=== PATIENT | female | born 1990 | race Hispanic/Latino ===

== ENCOUNTER → 2018-04-17 | Day surgery (SDC) | payer OTHER ==
[~2018-04-17] MED LIST: ACETAMINOPHEN 1000 MG/100 ML IV ONE; BUPIVACAINE HCL 0.5% INJ 30 ML VIAL INJ ONE; CEFAZOLIN SOD 2 GM/D5W 50ML 50 ML IV ONE; DEXAMETHASONE SOD PHOS INJ 4 MG/ML VIAL ONE; EFFEXOR XR150 MG PO; FENTANYL CITRATE/PF 100MCG/2 ML INJ ONE; GLYCOPYRROLATE INJ 1MG/ 5 ML SYR ONE; IBUPROFEN400 MG PO; KETOROLAC TROMETHAMINE 30 MG/ML VIAL ONE; LIDOCAINE HCL 2% LOCAL INJ 5 ML SDV VIAL INJ ONE; METOCLOPRAMIDE HCL 10 MG/2ML VIAL ONE; MIDAZOLAM HCL 2 MG/2 ML VIAL ONE; MORPHINE SULFATE INJ 10 MG/ML ONE; NEOSTIGMINE 1 MG/ML 10ML VIAL ONE; ONDANSETRON HCL INJ 2 MG/ML VIAL ONE; PROPOFOL IV EMULSION 10 MG/ML 20 ML VIAL ONE; RANITIDINE HCL150 MG PO; SEVOFLURANE INHAL SOLN 250 ML PEN BTL ONE; TYLENOL WITH C1 EACH PO; VENLAFAXINE HCL75 MG PO
--- OUTSIDE RECORDS SUMMARY | 2018-04-17 05:35 | XMS REPORT | Continuity of Care Document ---
Author Author [facility] Interface Address Unknown Phone Unavailable Problems Problem Status Onset Date Classification Date Reported Comments Source Acute sinusitis 07/06/2017 Diagnosis 07/06/2017 [facility] Amenorrhea 07/06/2017 Diagnosis 07/06/2017 [facility] Obese 07/06/2017 Diagnosis 07/06/2017 [facility] Influenza 06/12/2017 Diagnosis 07/06/2017 [facility] Body mass index 40+ - severely obese 06/12/2017 Diagnosis 07/06/2017 [facility] Itching of eye 03/06/2017 Diagnosis 03/06/2017 [facility] Acute upper respiratory infection 03/06/2017 Diagnosis 03/06/2017 [facility] Elevated blood pressure 03/09/2016 Diagnosis 03/09/2016 [facility] Nasopharyngitis Problem 07/06/2017 [facility] Elevated Blood Pressure Problem 07/06/2017 [facility] Acute Sinusitis Problem 07/06/2017 [facility] Medications Medication Details Route Status Patient Instructions Ordering Provider Order Date Source Fluticasone propionate 0.05 MG/ACTUAT Metered Dose Nasal [place] fluticasone 50 mcg/actuation nasal spray,suspension INSTILL 2 SPRAYS IN EACH NOSTRIL EVERY DAY FOR 7 DAYS Active [facility] Mononessa (28) 0.25 mg-35 mcg tablet Mononessa (28) 0.25 mg-35 mcg tablet Active [facility] Brompheniramine Maleate 0.4 MG/ML / Dextromethorphan Hydrobromide 2 MG/ML / Pseudoephedrine Hydrochloride 6 MG/ML Oral Solution hzmdwqvtlqdqpao-ffqahvxchabqess-XL 2 mg-30 mg-10 mg/5 mL syrup Take 10 mL every 4 hours by oral route as needed for 5 days. Active [facility] Acetaminophen 325 MG / butalbital 50 MG / Caffeine 40 MG Oral Tablet awuqckrqhy-ektnaiuxsjlmy-hwykfdmo 50 mg-325 mg-40 mg tablet Active [facility] Ibuprofen 800 MG Oral Tablet ibuprofen 800 mg tablet Active [facility] meclizine meclizine Active [facility] Mupirocin 0.02 MG/MG Topical Ointment mupirocin 2 % topical ointment Active [facility] Omeprazole 40 MG Delayed Release Oral Capsule omeprazole 40 mg capsule,delayed release TK 1 C PO QD Active [facility] Oseltamivir 75 MG Oral Capsule [Tamiflu] Tamiflu 75 mg capsule Take 1 capsule twice a day by oral route for 5 days. Active [facility] Brompheniramine Maleate 0.4 MG/ML / Dextromethorphan Hydrobromide 2 MG/ML / Pseudoephedrine Hydrochloride 6 MG/ML Oral Solution [Bromfed DM] Bromfed DM 2 mg-30 mg-10 mg/5 mL syrup Take 10 mL every 4 hours by oral route as needed for 5 days. Active [facility] Amoxicillin 875 MG Oral Tablet amoxicillin 875 mg tablet Take 1 tablet every 12 hours by oral route for 10 days. Active [facility] benzonatate 200 MG Oral Capsule benzonatate 200 mg capsule Take 1 capsule 3 times a day by oral route for 5 days. Active [facility] 12 HR Bupropion Hydrochloride 150 MG Extended Release Oral Tablet bupropion HCl SR 150 mg tablet,12 hr sustained-release Active [facility] Sumatriptan 25 MG Oral Tablet sumatriptan 25 mg tablet Active [facility] Allergies, Adverse Reactions, Alerts Substance Category Reaction Severity Reaction type Status Date Reported Comments Source Immunizations Immunization Date Given Site Status Last Updated Comments Source influenza, injectable, quadrivalent 06/20/2017 completed [facility] Results Order Name Results Value Reference Range Date Interpretation Comments Source Influenza A negative 07/06/2017 [facility] Influenza B negative 07/06/2017 [facility] RESULT negative 07/06/2017 [facility] SWAB LOCATION Left and Right tonsillar pillars 07/06/2017 [facility] Influenza A negative 06/12/2017 [facility] Influenza B positive 06/12/2017 [facility] Influenza A negative 06/12/2017 [facility] Influenza B positive 06/12/2017 [facility] RESULT negative 06/12/2017 [facility] SWAB LOCATION Left and Right tonsillar pillars 06/12/2017 [facility] Adenovirus Ag [Presence] in Unspecified specimen by Immunoassay RESULT negative 03/06/2017 [facility] Adenovirus Ag [Presence] in Unspecified specimen by Immunoassay SWAB LOCATION Left Conjunctiva 03/06/2017 [facility] Influenza A negative 03/06/2017 [facility] Influenza B negative 03/06/2017 [facility] Vital Signs Vital Sign Value Date Comments Source Diastolic (mm Hg) 80 07/06/2017 [facility] Height 68 07/06/2017 [facility] Systolic (mm Hg) 120 07/06/2017 [facility] Weight 345 07/06/2017 [facility] Diastolic (mm Hg) 76 06/12/2017 [facility] Height 68 06/12/2017 [facility] Systolic (mm Hg) 128 06/12/2017 [facility] Weight 350 06/12/2017 [facility] Diastolic (mm Hg) 60 03/06/2017 [facility] Height 68 03/06/2017 [facility] Systolic (mm Hg) 128 03/06/2017 [facility] Weight 340 03/06/2017 [facility] Diastolic (mm Hg) 92 03/09/2016 [facility] Height 68 03/09/2016 [facility] Systolic (mm Hg) 142 03/09/2016 [facility] Weight 340 03/09/2016 [facility] Encounters Location Location Details Encounter Type Encounter Number Reason For Visit Attending Provider ADM Date DC Date Status Source [place] - [id number] Zulema Lopez, MULTIFOCAL BUTTON GENERATOR: [address] [place] [address], Ph. [id number] Zulema Lopez 03/09/2016 [facility] [place] - [id number] Radha Mota, [employer] FOUNDER AND CHIEF STRATEGY OFFICER: [address] [place] [address], Ph. [id number] Radha Mota 03/06/2017 [facility] [place] [id number] NURYS MonterrosoC: [address] [place] [address], Ph. [phone] [id number] Jayla Linda 06/12/2017 [facility] [place] - [id number] Jayla Linda PA-C: [address] [place] [address], Ph. [id number] Jayla Linda 06/12/2017 [facility] [place] - [id number] Amanda Cheung PA-C: [address] [place] [address], Ph. [id number] Amanda Cheung 07/06/2017 [facility] Procedures Procedure Code Date Perfomer Comments Source
--- OUTSIDE RECORDS SUMMARY | 2018-04-17 05:35 | XMS REPORT | Encounter Summary ---
Author Organization Unknown Address [address] [place] [address] Phone [phone] Reason for Visit Medical Complaint Instructions 1. Acute sinusitis amoxicillin 875 mg tablet fluticasone 50 mcg/actuation nasal spray,suspension benzonatate 200 mg capsule rapid flu (A+B) 2. Amenorrhea 3. Obese Discussion Note Follow up with PCP if symptoms continue, ER if symptoms worsen Patient educational handouts: No information available. Plan of Care Reminders Provider Appointments None recorded. Lab Rapid Flu (A+B) 07/06/2017 [facility] Referral None recorded. Procedures None recorded. Surgeries None recorded. Imaging None recorded. Medications Name Start Date amoxicillin 875 mg tablet Take 1 tablet every 12 hours by oral route for 10 days. benzonatate 200 mg capsule Take 1 capsule 3 times a day by oral route for 5 days. bupropion HCl SR 150 mg tablet,12 hr sustained-release fluticasone 50 mcg/actuation nasal spray,suspension INSTILL 2 SPRAYS IN EACH NOSTRIL EVERY DAY FOR 7 DAYS omeprazole 40 mg capsule,delayed release TK 1 C PO QD sumatriptan 25 mg tablet Medications Administered None recorded. Vitals Height Weight BMI Blood Pressure 5 ft 8 in 345 lbs 52.5 kg/m2 120/80 mm[Hg] Lab Results Date Name Specimen Result Interpretation Description Value Range Status Address 06/12/2017 Rapid Flu (A+B) Influenza a negative [facility]: [address] [place] [address] Influenza B positive [facility]: [address] [place] [address] Rapid Flu (A+B) Influenza a negative [facility]: [address] [place] [address] Influenza B negative [facility]: [address] [place] [address] Rapid Strep Group a, Throat Result negative [facility]: [address] [place] [address] Swab Location Left and Right tonsillar pillars [facility]: [address] [place] [address] Allergies Code Code System Name Reaction Severity Status Onset NKDA Problems Name Status Onset Date Source Nasopharyngitis Active Encounter Acute Sinusitis Active Encounter Elevated Blood Pressure Active Encounter Procedures None recorded. Vaccine List Vaccine Type influenza, injectable, quadrivalent 06/20/2017 Social History Smoking Status Never Smoker Past Encounters 07/06/2017 Acute Sinusitis; Amenorrhea; Obese Amanda Cheung PA-C: [address] [place] [address], Ph. 06/12/2017 Influenza; Body Mass Index 40+ - Severely Obese Jayla Linda PA-C: [address] [place] [address], Ph. History of Present Illness Sreqm-Qttlitlvxx-Vmvofiz Reported By: Patient HPI: Location: head/sinuses. Quality: productive cough, colored phlegm, nasal/sinus congestion. Duration: 2days. Severity: moderate. Onset/Timing: sudden. Context: no sick contacts, no foreign travel, non-smoker, allergies. Modifying factors: OTC medication. Associated Symptoms: no sputum production, no shortness of breath, no wheezing, no change in number of pillows needed to sleep at night, no sweats, no significant weight gain, no significant weight loss, no sore throat, no vomiting, no diarrhea, no rash, no nausea, no fever, no muscle aches, no headache, morning cough Review of Systems:ROS as noted in the HPI Review of Systems Basic Reported By: Patient Physical Exam Adult Basic Reported By: Patient Constitutional: General Appearance: healthy-appearing, well-nourished, well-developed. Level of Distress: NAD. Ambulation: ambulating normally Psychiatric: Mental Status: active and alert. Orientation: to time, to place, to person Eyes: Lids and Conjunctivae: non-injected, no discharge, no pallor. EOM: EOMI. Lens: clear. Sclerae: non-icteric. Vision: acuity grossly intact Fhs-Znrr-Qqgfg-Throat: Ears: no lesions on external ear, no outer ear tenderness, EACs clear, TMs clear, middle ear fluid. Hearing: no hearing loss. Nose: no lesions on external nose, nares patent, no septal deviation, nasal passages clear, sinus tenderness, nasal discharge--purulent, post nasal drip. Lips, Teeth, and Gums: no mouth or lip ulcers, no bleeding gums, normal dentition. Oropharynx: moist mucous membranes, no erythema, no exudates, tonsils not enlarged Neck: Neck: supple, trachea midline, no masses, FROM. Lymph Nodes: no cervical LAD. Thyroid: no enlargement, non-tender, no nodules Lungs: Respiratory effort: no dyspnea, no tachypnea, no use of accessory muscles, no intercostal retractions. Auscultation: breath sounds normal Cardiovascular: Heart Auscultation: RRR, no murmurs Musculoskeletal:: Joints, Bones, and Muscles: normal movement of all extremities Neurologic: Gait and Station: normal gait, normal station Back: Thoracolumbar Appearance: normal curvature
--- OUTSIDE RECORDS SUMMARY | 2018-04-17 05:35 | XMS REPORT | Encounter Summary ---
Author Organization Unknown Address [address] [place] [address] Phone [phone] Reason for Visit Medical Complaint Instructions 1. Influenza Tamiflu 75 mg capsule rapid flu (A+B) rapid strep group A, throat 2. Body mass index 40+ - severely obese Discussion Note: None recorded. Patient educational handouts: No information available. Plan of Care Patient Instructions Try dayquil/nyquil OTC. Please seek care (PCP, Urgent Care, ER) or return to [facility] if symptoms get worse or do not resolve in 1 week. Reminders Provider Appointments None recorded. Lab Rapid Flu (A+B) 06/12/2017 [facility] Rapid Strep Group a, Throat 06/12/2017 [facility] Referral None recorded. Procedures None recorded. Surgeries None recorded. Imaging None recorded. Medications Name Start Date lecrfnwfwtxsyri-mtnkbewqelpchwa-UG 2 mg-30 mg-10 mg/5 mL syrup Take 10 mL every 4 hours by oral route as needed for 5 days. wrttnjihuv-ohotwjpyryyiy-lvketasg 50 mg-325 mg-40 mg tablet ibuprofen 800 mg tablet meclizine mupirocin 2 % topical ointment omeprazole 40 mg capsule,delayed release TK 1 C PO QD Tamiflu 75 mg capsule Take 1 capsule twice a day by oral route for 5 days. Medications Administered None recorded. Vitals Height Weight BMI Blood Pressure 5 ft 8 in 350 lbs 53.2 kg/m2 128/76 mm[Hg] Lab Results Date Name Specimen Result Interpretation Description Value Range Status Address 06/12/2017 Rapid Flu (A+B) Influenza a negative [facility]: [address] [place] [address] Influenza B positive [facility]: [address] [place] [address] Rapid Strep Group a, Throat Result negative [facility]: [address] [place] [address] Swab Location Left and Right tonsillar pillars [facility]: [address] [place] [address] Allergies Code Code System Name Reaction Severity Status Onset NKDA Problems Name Status Onset Date Source Nasopharyngitis Active Encounter Acute Sinusitis Active Encounter Elevated Blood Pressure Active Encounter Procedures None recorded. Vaccine List None recorded. Social History Smoking Status Never Smoker Past Encounters 06/12/2017 Influenza; Body Mass Index 40+ - Severely Obese Jayla Linda PA-C: [address] [place] [address], Ph. History of Present Illness Xqkwn-Gyxpwgmqgq-Mpfukhx Reported By: Patient HPI: Location: head/sinuses, throat, chest. Quality: sore throat, nasal/sinus congestion, hacking cough, dry cough. Duration: 2days. Context: no sick contacts, no foreign travel, non-smoker. Associated Symptoms: no sputum production, no shortness of breath, no wheezing, no change in number of pillows needed to sleep at night, no sweats, no significant weight gain, no significant weight loss, no morning cough, no vomiting, no diarrhea, no rash, no nausea, sore throat, fever Review of Systems Basic Reported By: Patient Constitutional: Constitutional: fever Eyes: Eyes: no eye complaints Pnqq-Ovto-Oyxks-Throat: Ears: no ear complaints. Nose: nose/sinus problems. Mouth/Throat: no bleeding gums, no mouth complaints, no teeth problems, sore throat Cardiovascular: Cardiovascular: no chest pain, no shortness of breath, no known heart murmur Respiratory: Respiratory: no wheezing, no shortness of breath, cough Gastrointestinal: Gastrointestinal: no abdominal pain, no vomiting / diarrhea Skin: Skin: no rashes Physical Exam Adult Basic, Adult Female Complete, Adult Male Complete Reported By: Patient Constitutional: General Appearance: healthy-appearing, well-nourished, well-developed. Level of Distress: NAD. Ambulation: ambulating normally Psychiatric: Mental Status: active and alert. Orientation: to time, to place, to person Eyes: Lids and Conjunctivae: non-injected, no discharge, no pallor Opq-Rcmj-Jqwse-Throat: Ears: no lesions on external ear, no outer ear tenderness, EACs clear, TMs clear, TM mobility normal. Hearing: no hearing loss. Nose: no lesions on external nose, nares patent, no septal deviation, nasal passages clear, no sinus tenderness, nasal discharge--rhinorrhea, post nasal drip. Lips, Teeth, and Gums: no mouth or lip ulcers, no bleeding gums, normal dentition. Oropharynx: moist mucous membranes, no exudates, tonsils not enlarged, erythema Neck: Neck: supple. Lymph Nodes: no cervical LAD, no supraclavicular LAD Lungs: Respiratory effort: no dyspnea, no tachypnea, no use of accessory muscles, no intercostal retractions. Percussion: no dullness, flatness, or hyperresonance. Auscultation: breath sounds normal, good air movement Cardiovascular: Heart Auscultation: RRR, no murmurs. Pulses including femoral / pedal: normal throughout
--- OUTSIDE RECORDS SUMMARY | 2018-04-17 05:35 | XMS REPORT | Encounter Summary ---
Author Organization Unknown Address [address] [place] [address] Phone [phone] Reason for Visit Medical Complaint Instructions 1. Body mass index 40+ - severely obese 2. Itching of eye adenovirus Ag, Immunoassay 3. Acute upper respiratory infection upper respiratory infection (cold): care instructions rapid flu (A+B) Bromfed DM 2 mg-30 mg-10 mg/5 mL syrup Discussion Note: None recorded. Plan of Care Reminders Provider Appointments None recorded. Lab Rapid Flu (A+B) 03/06/2017 [facility] Adenovirus Ag, Immunoassay 03/06/2017 [facility] Referral None recorded. Procedures None recorded. Surgeries None recorded. Imaging None recorded. Medications Name Start Date Bromfed DM 2 mg-30 mg-10 mg/5 mL syrup Take 10 mL every 4 hours by oral route as needed for 5 days. omeprazole 40 mg capsule,delayed release TK 1 C PO QD Medications Administered None recorded. Vitals Height Weight BMI Blood Pressure 5 ft 8 in 340 lbs 51.7 kg/m2 128/60 mm[Hg] Lab Results Date Name Specimen Result Interpretation Description Value Range Status Address Adenovirus Ag, Immunoassay Result negative [facility]: [address] [place] [address] Swab Location Left Conjunctiva [facility]: [address] [place] [address] Rapid Flu (A+B) Influenza a negative [facility]: [address] [place] [address] Influenza B negative [facility]: [address] [place] [address] Allergies Code Code System Name Reaction Severity Status Onset NKDA Problems Name Status Onset Date Source Nasopharyngitis Active Encounter Acute Sinusitis Active Encounter Elevated Blood Pressure Active Encounter Procedures None recorded. Vaccine List None recorded. Social History Smoking Status Never Smoker Past Encounters 03/06/2017 Body Mass Index 40+ - Severely Obese; Itching of Eye; Acute Upper Respiratory Infection Radha Mota [employer]: [address] [place] [address], Ph. History of Present Illness Nfjby-Dchhaxorlx-Tulelaz Reported By: Patient HPI: Location: head/sinuses. Quality: productive cough, colored phlegm, nasal/sinus congestion. Duration: 1days. Severity: mild. Onset/Timing: sudden. Context: no foreign travel, non-smoker, sick contact. Associated Symptoms: no shortness of breath, no wheezing, no change in number of pillows needed to sleep at night, no sweats, no significant weight gain, no significant weight loss, no sore throat, no vomiting, no diarrhea, no rash, no nausea, no fever, no muscle aches, no headache, green sputum, morning cough; itchy eyes Review of Systems:ROS as noted in the HPI Review of Systems None recorded. Physical Exam Adult Basic Reported By: Patient Constitutional: General Appearance: healthy-appearing, morbidly obese. Level of Distress: mild distress. Ambulation: ambulating normally Psychiatric: Mental Status: active and alert. Orientation: to time, to place, to person Eyes: Lids and Conjunctivae: non-injected. Pupils: PERRLA. Corneas: grossly intact. EOM: EOMI. Lens: clear. Sclerae: non-icteric Vvi-Sbub-Rqfit-Throat: Ears: no lesions on external ear, no outer ear tenderness, EACs clear, TMs clear. Hearing: no hearing loss. Nose: no lesions on external nose, nares patent, no septal deviation, nasal passages clear, no sinus tenderness, nasal discharge--rhinorrhea. Lips, Teeth, and Gums: no mouth or lip ulcers, no bleeding gums, normal dentition. Oropharynx: moist mucous membranes, no exudates, tonsils not enlarged, erythema Neck: Neck: supple, FROM. Lymph Nodes: no cervical LAD Lungs: Respiratory effort: no dyspnea, no tachypnea, no use of accessory muscles, no intercostal retractions. Auscultation: breath sounds normal Cardiovascular: Heart Auscultation: RRR, no murmurs Musculoskeletal:: Motor Strength and Tone: normal motor strength, normal tone Neurologic: Gait and Station: normal gait, normal station. Sensation: grossly intact
--- OUTSIDE RECORDS SUMMARY | 2018-04-17 05:35 | XMS REPORT | Encounter Summary ---
Author Organization Unknown Address [address] [place] [address] Phone [phone] Reason for Visit Medical Complaint; possible sinus infection, x 2 days Instructions 1. Nasopharyngitis fluticasone 50 mcg/actuation nasal spray,suspension 2. Elevated blood pressure Discussion Note Please contact us if you decide to participate in the weigh forward program. Patient educational handouts: No information available. Plan of Care Patient Instructions Rest. Increase fluid intake to stay hydrated. Fluticasone (nasal steriod) 2 sprays to each nostril once daily for at least 7- 10 days to help with congestion and sinus pressure. OTCs meds such as Jen Rome Cold and Cough Plus can be taken to help control symptoms. Contains tylenol, 2 cough medications and a decongestant. If no improvement in 72 hours please follow up with PCP. Reminders Provider Appointments None recorded. Lab None recorded. Referral None recorded. Procedures None recorded. Surgeries None recorded. Imaging None recorded. Medications Name Start Date fluticasone 50 mcg/actuation nasal spray,suspension Inhale 2 spray(s) into each nostril once daily for 7 days. Mononessa (28) 0.25 mg-35 mcg tablet Medications Administered None recorded. Vitals Height Weight BMI Blood Pressure 5 ft 8 in 340 lbs 51.7 (1) 200/100 (2) 142/92 Lab Results None recorded. Allergies Name Reaction Severity Onset NKDA Problems Name Status Onset Date Source Nasopharyngitis Active Encounter Elevated Blood Pressure Active Encounter Procedures None recorded. Vaccine List None recorded. Social History Smoking Status Never Smoker Past Encounters 03/09/2016 Nasopharyngitis; Elevated Blood Pressure LEONIDAS Lewis: [address], [place] [address], Ph. History of Present Illness Mafsw-Cettcbwmqi-Hrrqsrh Reported By: Patient HPI: Location: ; sore throat, congestion, wet sounding cough, chills x 24 hours. Quality: productive cough, sore throat, nasal/sinus congestion. Duration: 1days. Onset/Timing: gradual. Context: no sick contacts, no foreign travel, non- smoker. Modifying factors: OTC medication. Associated Symptoms: no sputum production, no shortness of breath, no wheezing, no sweats, no significant weight gain, no significant weight loss, no vomiting, no diarrhea, no rash, no nausea, difficulty breathing at night, morning cough, sore throat Review of Systems Basic Reported By: Patient Constitutional: Constitutional: no fever Eyes: Eyes: no eye complaints Wmth-Qbwo-Lwpau-Throat: Ears: no ear complaints. Nose: nose/sinus problems. Mouth/Throat: no bleeding gums, no mouth complaints, no teeth problems, sore throat Cardiovascular: Cardiovascular: no chest pain, no shortness of breath, no known heart murmur Respiratory: Respiratory: no wheezing, cough, shortness of breath Gastrointestinal: Gastrointestinal: no abdominal pain, no vomiting / diarrhea Genitourinary: Genitourinary: no urinary complaints, no discharge Musculoskeletal: Musculoskeletal: no muscle aches, no muscle weakness, no arthralgias/joint pain, no back pain Skin: Skin: no abnormal / changing mole, no jaundice, no rashes Neurologic: Neurologic: no loss of consciousness, no weakness, no numbness, no seizures, no dizziness, no headaches Physical Exam Adult Basic, Adult Female Complete Constitutional: General Appearance: healthy-appearing, well-nourished, well-developed. Level of Distress: NAD. Ambulation: ambulating normally Psychiatric: Mental Status: active and alert. Orientation: to time, to place, to person Eyes: Lids and Conjunctivae: non-injected, no discharge, no pallor. Pupils: PERRLA. Corneas: grossly intact. EOM: EOMI. Lens: clear. Sclerae: non-icteric. Vision: acuity grossly intact Jqw-Gpfi-Lcjlo-Throat: Ears: no lesions on external ear, no outer ear tenderness, EACs clear, TMs clear. Hearing: no hearing loss. Nose: no lesions on external nose, nares patent, no septal deviation, nasal passages clear, sinus tenderness, nasal discharge--rhinorrhea, post nasal drip; red inflammed turbinates. Lips, Teeth, and Gums: no mouth or lip ulcers, no bleeding gums, normal dentition. Oropharynx: moist mucous membranes, no exudates, tonsils not enlarged, erythema Neck: Neck: supple, trachea midline, no masses, FROM. Lymph Nodes: no cervical LAD. Thyroid: no enlargement Lungs: Respiratory effort: no dyspnea, no tachypnea, no use of accessory muscles, no intercostal retractions. Auscultation: breath sounds normal Cardiovascular: Heart Auscultation: RRR, no murmurs Skin: Inspection and palpation: no rash, no lesions, no ulcer, no abnormal nevi, no induration, no nodules, good turgor, no jaundice
[2018-04-17 10:25] VITALS: BP 117/82
--- NOTE | 2018-04-17 13:40 | NUR ---
SPIRITUAL CARE - Pre-Surgery Assessment: Pt in bed. Pt's mother at bedside. Pt reported supportive attention from family and friends. Intervention: I provided pastoral presence, hospitality, and sympathetic listening. I acquainted pt with availability of devulcanizer operator while hospitalized. Outcome: Pt expressed appreciation for visit. No need for follow up indicated at this time. [facility] Spiritual Care Department O: [phone] Pager: [phone] ([phone] calling from)
--- NOTE | 2018-05-15 11:23 | Operative Report ---
DATE OF PROCEDURE: April 17, 2018 PREOPERATIVE DIAGNOSES 1. Posterior tibial tendon tear, left foot. 2. Peroneal tendon tear, left foot. 3. Gastrocnemius equinus. POSTOPERATIVE DIAGNOSES 1. Posterior tibial tendon tear, left foot. 2. Peroneal tendon tear, left foot. 3. Gastrocnemius equinus. PROCEDURES 1. Repair of posterior tibial tendon with entubulation and use of a graft, left foot. 2. Repair of peroneal tendon with entubulation and use of a graft, left foot. 3. Application of posterior splint. PATHOLOGY: None. ANESTHESIA: General anesthetic. HEMOSTASIS: Pneumatic thigh tourniquet. ESTIMATED BLOOD LOSS: Less than 10 mL. MATERIALS: A 2 x 4 graft from [email or web address]. The name of the graft is ProLayer. COMPLICATIONS: None. CONDITION: Stable. PROCEDURE IN DETAIL: Under mild sedation, the patient was brought to the operating room and placed on the operating table in the supine position. Following IV sedation, anesthesia was obtained with a general anesthetic. At this point, the left foot was scrubbed, prepped and draped in the usual aseptic manner. It was then lowered to the table after the pneumatic thigh tourniquet was inflated to 350 mmHg. Attention was then directed to posterior tibial tendon repair with entubulation and use of a graft. Attention was directed to the medial aspect of the left foot where a curvilinear incision was made overlying the peroneal tibial tendon at the watershed area behind the medial malleolus down into the insertion. The incision was deepened via sharp and blunt dissection, taking care to retract or cauterize neurovascular structures as necessary. It was deepened down to the level of the tendon. At this point, the tendon was visualized. There was noted to be a large amount of synovial nonviable tissue. There was a longitudinal tear. All nonviable tissue was removed and passed from the operating table. Utilizing standing entubulation technique and with a ProLayer graft, the tendon was entubulated and augmented utilizing the graft. A 4-0 Prolene was used for this. The area was then flushed with copious amount of normal sterile saline solution. The area was then closed in layers, closing the deepest layer with 3-0 Vicryl, 4-0 Vicryl and 4-0 nylon. Repair of peroneal tendon, left foot. Attention was then directed to the lateral aspect of the left foot where a curvilinear incision was made overlying the peroneal tendon at the watershed area from the lateral malleolus down into the base of the 5th. The incision was deepened via sharp and blunt dissection, taking care to retract or cauterize neurovascular structures as necessary. It was deepened down to the level of the peroneal tendon. The tendon sheath was then opened. The tendon was noted to be nonviable. It was noted to be flattened, and it was noted to be white. All nonviable tissue was removed with sharp dissection with a #15 blade. All the synovial nonviable tissue was also removed. The tendon was then entubulated with 4-0 Prolene and augmented with the use of a ProLayer graft. The area was then flushed with copious amounts of normal sterile saline solution. The area was then closed, closing the deepest layer with 3-0 Vicryl, 4-0 Vicryl and 4-0 nylon. A clean dressing was applied consisting of Adaptic, 4 x 4's, Kerlix, and Webril. A posterior splint was applied and was secured utilizing an Burak bandage. The pneumatic tourniquet was deflated. There was noted to be a hyperemic response to all the digits. The patient tolerated the procedure and anesthesia well without complications. She was transported to the recovery room with vital signs stable and neurovascular status intact to both feet. The patient will be discharged home when she meets criteria. She was given instructions to be strictly nonweightbearing, to ice and elevate the foot while at rest, to follow up with me in the office and to call the office if any questions, concerns or any problems arise. Job#: [id number]
== END | disposition home or self-care (01) ==
LOC: OR 05:31
PROVIDERS: ATTEND Podiatrist Foot & Ankle Surgery
DX: M66.362 Spontaneous rupture of flexor tendons, left lower leg (principal); S96.812A Strain of other specified muscles and tendons at ankle and foot level, left foot, initial encounter; S86.812A Strain of other muscle(s) and tendon(s) at lower leg level, left leg, initial encounter; E66.01 Morbid (severe) obesity due to excess calories; K21.9 Gastro-esophageal reflux disease without esophagitis; K44.9 Diaphragmatic hernia without obstruction or gangrene; F41.9 Anxiety disorder, unspecified; F32.9 Major depressive disorder, single episode, unspecified; X58.XXXA Exposure to other specified factors, initial encounter
CPT/HCPCS: 28202 ×2; 81025; J0131; J0690; J1100; J1885; J2001; J2250; J2270; J2405; J2704; J2710; J2765; J3490; Q4100

== ENCOUNTER → 2024-07-03 | Day surgery (SDC) | payer BC, OTHER ==
[~2024-07-03] MED LIST changes: -ACETAMINOPHEN 1000 MG/100 ML IV ONE; -BUPIVACAINE HCL 0.5% INJ 30 ML VIAL INJ ONE; -CEFAZOLIN SOD 2 GM/D5W 50ML 50 ML IV ONE; +DEXAMETHASONE SOD PHOS INJ 4 MG/ML SDV ONE; -DEXAMETHASONE SOD PHOS INJ 4 MG/ML VIAL ONE; +DICYCLOMINE HCL10 MG PO; -GLYCOPYRROLATE INJ 1MG/ 5 ML SYR ONE; +HYDROMORPHONE 2MG/ML ONE; -KETOROLAC TROMETHAMINE 30 MG/ML VIAL ONE; -METOCLOPRAMIDE HCL 10 MG/2ML VIAL ONE; -MORPHINE SULFATE INJ 10 MG/ML ONE; +MOUNJARO10 MG/0.5; -NEOSTIGMINE 1 MG/ML 10ML VIAL ONE; -ONDANSETRON HCL INJ 2 MG/ML VIAL ONE; +ONDANSETRON HCL INJ 2MG/ML 2ML 2 MG/ML VIAL ONE
[2024-07-03] MEDS: LACTATED RINGER'S 1,000 ML ONE (10:49)
[2024-07-03 13:51] VITALS: TEMP 97
[2024-07-03 15:10] VITALS: BP 121/77; PULSE 71; RESP 16; O2SAT 99
== END | disposition home or self-care (01) ==
LOC: OR 10:16
PROVIDERS: ATTEND Podiatrist Foot & Ankle Surgery
DX: S93.492A Sprain of other ligament of left ankle, initial encounter (principal); S93.412A Sprain of calcaneofibular ligament of left ankle, initial encounter; M67.472 Ganglion, left ankle and foot; G47.33 Obstructive sleep apnea (adult) (pediatric); K21.9 Gastro-esophageal reflux disease without esophagitis; E11.9 Type 2 diabetes mellitus without complications; F41.9 Anxiety disorder, unspecified; F32.A Depression, unspecified; E66.01 Morbid (severe) obesity due to excess calories; X58.XXXA Exposure to other specified factors, initial encounter; Z79.85 Long-term (current) use of injectable non-insulin antidiabetic drugs; Z79.899 Other long term (current) drug therapy
CPT/HCPCS: 27696; 28090; 76000; 81025; C1713; C1762; J0690; J1100; J1170; J2003; J2250; J2405; J2704; J3010; J7121